=== PATIENT | female | born 1980 | race Caucasian/White ===

== ENCOUNTER 2018-03-02 15:00 | Outpatient (CLI) | END 2018-03-02 21:15 | disposition home or self-care (01) ==

== ENCOUNTER 2018-03-31 14:54 | Inpatient (IN) | payer MEDICAID ==
[~2018-03-31] VITALS: Ht 152.4 cm; Wt 52.1 kg
[~2018-03-31 14:54] MED LIST: PREN1TAB13 PO
[2018-03-31 15:31] VITALS: Ht 152.4 cm; Wt 52.1 kg
[2018-03-31 15:32] VITALS: BP 106/55; PULSE 76; RESP 20
[2018-03-31] MEDS ORDERED: MAGNESIUM SULFATE 4 GM/100 ML 100 ML IV ONE (16:30)
[2018-03-31] MEDS ORDERED: AMPICILLIN 2 GM/NS (PMX) 100 ML IV ONE (16:30)
--- NOTE | 2018-03-31 16:38 | PREOPHP ---
DATE OF ADMISSION: 03/31/2018 HISTORY OF PRESENT ILLNESS: Ms. Santana Conteh is a 38-year-old 1, para 0, EDC of 05/11/2018 intrauterine at 34 weeks and 1 day gestational age, was sent from [facility] for regular contractions. The patient denies any vaginal bleeding or discharge. Her biophysical profile at the [facility] was 8/8. The reason for her biophysical profile at [facility] for elevated liver enzymes. Her care took place at [facility]. PAST MEDICAL HISTORY: None. MEDICATIONS: 1. vitamins. 2. Iron. PAST SURGICAL HISTORY: None. OBSTETRIC HISTORY: Primigravida. GYNECOLOGIC HISTORY: 12, regular 3 to 4 days. Denies any sexually transmitted disease. Sexually active with 1 partner. SOCIAL HISTORY: Denies any smoking, drugs or alcohol. FAMILY HISTORY: None. REVIEW OF SYSTEMS: All within normal except history of present illness. PHYSICAL EXAMINATION: HEENT: Within normal. LUNGS: CTA bilateral. CARDIOVASCULAR: S1, S2. Regular rate, rhythm. ABDOMEN: Gravid, nontender. Negative CVA bilateral. EXTREMITIES: Negative edema. No calf tenderness. PELVIC: Vaginal exam is 1 cm, 50%, -2. heart tracing category 1. Tocometer: Regular contractions. ASSESSMENT: 1. Intrauterine at 34 weeks and 1 day gestational age. 2. labor. 3. Advanced maternal age. PLAN: Admit the patient for IV hydration, steroid treatment for lung maturity, magnesium sulfate, for tocolysis, estimated weight with cervical length, culture, GBS prophylaxis with ampicillin. NICU consult. Perinatology consult. Dictated By: JEFFERSON JENKINS/CHAPIS Conf#: [id number] DID#: [id number] TENZIN
[2018-03-31] MEDS: LACTATED RINGER'S 1,000 ML IV SCH (16:52)
[2018-03-31] MEDS: MAGNESIUM SULFATE 20 GM/500 ML 500 ML IV SCH (17:21)
--- NOTE | 2018-03-31 17:46 | TRIAGE ---
OB Triage Datetime Report Generated by CPN: 03/31/2018 17:45 Datetime: 03/31/2018 16:13 Stage of : Antepartum Vaginal Exam Dilatation (cms): 1.0 Effacement (%): 50 Station: -2 Exam By: MAY Datetime: 03/31/2018 15:15 Stage of : OB Triage Labor Evaluation Monitor Mode: External Heart Rate Monitor Mode: External US Datetime: 03/31/2018 15:12 Assessment Type: Triage Maternal Assessment Level of Consciousness: Fully Conscious DTR's/Clonus: DTRs 2+; No Clonus Headache: Denies Blurred Vision: No Respiratory Effort: Unlabored; Regular Rhythm; Equal Expansion Breath Sounds, Left: Clear and Equal Breath Sounds, Right: Clear and Equal Nausea/Vomiting: Denies RUQ Epigastric Pain: Denies Lower Extremities Edema: None Degree: None Upper Extremities Edema: None Degree: None Facial Edema: None Fall Risk Assessment History of Falling: (0) No Secondary Diagnosis: (0) No Ambulatory Aid: (0) Bedrest/Nurse Assist IV Therapy: (0) No Gait: (0) Normal/Bedrest/Immobile Mental Status: (0) Oriented to Own Ability Fall Score: 0 Fall Risk Score Definition: No Risk: No action required Datetime: 03/31/2018 13:17 Time of Arrival: 03/31/2018 14:52 EGA: 34.1 Arrived By: Ambulatory Arrived From: Dr. Bocanegra Movement: Present Contractions: Occasional Rupture of Membranes: Denies Vaginal Bleeding: None Vaginal Discharge: Denies Recent Sexual Intercouse: Denies Abdominal Trauma: Not Applicable Patient Complaints: Other Time Provider Notified: 03/31/2018 16:13 Provider Notified: DR. LOVE Initial Plan: EFM, UA Datetime: 03/02/2018 15:25 EGA: 30.0 Datetime: 03/02/2018 15:24 Fall Score: 0 Fall Risk Score Definition: No Risk: No action required
[2018-03-31] MEDS: BETAMET NA PHOS/AC(6 MG/ML) 2 ML INJ SYG IM SCH (17:59)
[2018-03-31] MEDS: URSODIOL 300 MG CAP PO SCH (20:48)
[2018-03-31] MEDS: AMPICILLIN 1 GM/NS (PMX) 50 ML IV SCH (20:48)
[2018-04-01] MEDS: AMPICILLIN 1 GM/NS (PMX) 50 ML IV SCH ×4 (00:57→13:15)
[2018-04-01] MEDS: MAGNESIUM SULFATE 20 GM/500 ML 500 ML IV SCH (03:29)
[2018-04-01] MEDS: LACTATED RINGER'S 1,000 ML IV SCH ×3 (04:58→23:10)
[2018-04-01] MEDS: PRENATAL VITAMIN PO SCH (09:20)
[2018-04-01] MEDS: FERROUS SULFATE (EC) 325 MG TAB PO SCH (09:20)
[2018-04-01] MEDS: DOCUSATE SODIUM 100 MG CAP PO SCH (09:20)
[2018-04-01] MEDS: URSODIOL 300 MG CAP PO SCH ×2 (09:20→13:15)
--- NOTE | 2018-04-01 10:03 | NSTRPT ---
NST Information Datetime Report Generated by CPN: 04/01/2018 10:02 Datetime: 03/31/2018 13:09 NST Information EGA: 34.1 Test Number: 1 Time on Monitor: 03/31/2018 13:35 Time off Monitor: 03/31/2018 14:09 NST Duration (Min): 34 Reason for NST: Other Reason for NST Other: Elevated Liver Enzymes, AMA Test and Monitor Explained: Monitor Explained; Test Explained; Verbalized Understanding Pulse: 71 Resp: 18 SBP: 92 DBP: 48 Test Evaluation NST Interventions: None Patient States Movement: Present Contraction Frequency: 4-9/30-90/mild FHR Baseline : 135 Variability: Moderate 6-25bpm Accelerations: 15X15 Decelerations: None FHR Category: Category I NST Results: Reactive Provider Notified: Dr Rivero reviewed strip _ uc pattern-recommends going to triage Comments: To u/s JOSHUA 14.4 CM CEPHALIC UCs present, pt describes pain level of 1=Dr Rivero recommends pt go to triage for evaluation to ro labor Dr Eshaghian informed of reactive nst, joshua _ ucs-plan to triage. Explanation id [place] islander given to p t by BOAZ Gaytan. Pt verbalizes understanding Prenatals _ preliminary us report faxed to triage _ report to Gracy Rhoades RN Electronically Signed By E-Signature: with User ID: [id number], Addendum/Amendment: Elli signing for Mat
--- NOTE | 2018-04-01 16:33 | PERINOTE ---
Date/Time of Note Date/Time of Note DATE: 04/01/18 TIME: 16:17 Assessment/Recommendations Other Assessments IUP 34W2D Uterine contractions, now resolved Status post first dose of betamethasone Intermittent mildly elevated AST/ALT without elevated bile acids One significant variable deceleration seen. JOSHUA on 03/31 was 14 cm Recommendations: Would complete the betamethasone course and observe the patient overnight for additional heart rate decelerations. In the AM would repeat BPP. If normal BPP with normal JOSHUA, would consider D/C home In terms of the LFTs could consider RUQ US for gallstones and possible liver steatosis. Would also consider evaluation for chronic hepatitis B or C. Would not continue ursodiol as the patient does not meet criteria for a diagnosis of cholestasis Would not continue ampicillin as delivery is not anticipated. OB Subjective Free Text/Dictaton Patient admitted from [facility] for uterine contractions. Has a history of mildly elevated LFTs occasional Bile acid determinations have been in the normal range (<10umol/L), not consistent with a diagnosis of cholestasis. Patient reports that she has not taken ursodiol prior to this admission. HD# 2 IUP @ 34W2D Current Medications Current Medications Lactated Ringer's 1,000 ml @ 125 mls/hr Q8H IV Last administered on 04/01/18at 15:41; Admin Dose 125 MLS/HR; Start 03/31/18 at 16:19 Betamethasone Acet/Betameth SodPhos (Celestone Soluspan) 12 mg Q24H IM Last administered on 03/31/18at 17:59; Admin Dose 12 MG; Start 03/31/18 at 16:30; Stop 04/01/18 at 16:31 Prenat Multivit/ [place]/Iron/Folic Ac () 1 tab DAILY PO Last administered on 04/01/18at 09:20; Admin Dose 1 TAB; Start 04/01/18 at 09:00 Ferrous Sulfate (Ferrous Sulfate (Ec)) 325 mg DAILY PO Last administered on 04/01/18at 09:20; Admin Dose 325 MG; Start 04/01/18 at 09:00 Docusate Sodium (Colace) 100 mg DAILY PO Last administered on 04/01/18at 09:20; Admin Dose 100 MG; Start 04/01/18 at 09:00 Ursodiol (Actigall) 300 mg TID PO Last administered on 04/01/18at 13:15; Admin Dose 300 MG; Start 03/31/18 at 21:00 Past Medical History Medical History: no pertinent history [employer] History: no pertinent [employer] history Para: 0 : 1 LMP (Females 10-50): Social History Smoker: non-smoker Alcohol: none Drugs: none OB Admission Exam Physical Exam Vitals: Vital Signs Date Temp Pulse Resp B/P (MAP) Pulse Ox O2 O2 Flow FiO2 Time Delivery Rate 03/31/18 98.1 76 20 106/55 Room Air 15:32 (72) Heart: Rhythm Normal Lungs: Clear, Equal Abdomen: WNL Heart Rate: 120's Accelerations: Accelerations Present Decelerations: Variable Decelerations (Significant variable deceleration at about 2PM, after this consultation) Varibility: Moderate Last 72 hours Lab Results CBC & BMP 03/31/18 16:40 Liver Function Test 03/31/18 16:40 Alanine Aminotransferase (ALT/SGPT) 41 Albumin 3.6 Alkaline Phosphatase 234 H Aspartate Amino Transf (AST/SGOT) 37 Direct Bilirubin 0.00 Total Protein 7.1 Magnesium Level Test 04/01/18 00:42 04/01/18 06:07 Magnesium Level 6.4 *H 7.2 *H Copies To: CC: JEFFERSON LOVE MD ; OCTAVIO CARLSON MD Apr 01, 2018 16:28
--- NOTE | 2018-04-01 17:09 | CONS ---
Date/Time of Note Date/Time of Note DATE: 04/01/18 TIME: 16:36 Assessment/Plan Assessment/Plan Result Diagram: 03/31/18 1640 03/31/18 1640 Results 24hrs Laboratory Tests Test 03/31/18 16:40 04/01/18 00:42 04/01/18 06:07 04/01/18 07:21 White Blood Count 7.6 Red Blood Count 3.65 L Hemoglobin 10.9 L Hematocrit 32.6 L Mean Corpuscular 89.3 Volume Mean Corpuscular 29.9 Hemoglobin Mean Corpuscular 33.4 Hemoglobin Concent Red Cell 13.8 Distribution Width Platelet Count 249 Mean Platelet 10.6 H Volume Immature 0.400 Granulocytes % Neutrophils % 74.0 Lymphocytes % 18.8 Monocytes % 5.4 Eosinophils % 1.1 Basophils % 0.3 Nucleated Red 0.0 Blood Cells % Immature 0.030 Granulocytes # Neutrophils # 5.6 Lymphocytes # 1.4 Monocytes # 0.4 Eosinophils # 0.1 Basophils # 0.0 Nucleated Red 0.0 Blood Cells # Prothrombin Time 11.1 L Prothrombin Time 0.9 Ratio INR International 0.79 Normalized Ratio Activated 27.[address] Time Sodium Level 136 Potassium Level 3.8 Chloride Level 106 Carbon Dioxide 22 Level Anion Gap 8 Blood Urea 6 L Nitrogen Creatinine 0.47 Est Glomerular > 60 Filtrat Rate mL/min Glucose Level 78 Calcium Level 9.4 Total Bilirubin 0.2 Direct Bilirubin 0.00 Indirect Bilirubin 0.2 Aspartate Amino 37 Transf (AST/SGOT) Alanine 41 Aminotransferase ( ALT/SGPT) Alkaline 234 H Phosphatase Total Protein 7.1 Albumin 3.6 Globulin 3.50 H Albumin/Globulin 1.02 Ratio Rapid Plasma NONREACTIVE Reagin Magnesium Level 6.4 *H 7.2 *H Lab Scanned Report REFERENCE LAB Consultation Date/Type/Reason Admit Date/Time Mar 31, 2018 at 16:20 Date of Consultation: Apr 01, 2018 Type of Consult Medicine Reason for Consultation Requested by Dr. Love to discuss with parents anticipated course and complications associated with at 34 2/7 wks gestation Requesting Provider: JEFFERSON LOVE MD Hx of Present Illness Met with parents at bedside and spoke through logistic specialist. Mother is a 36 yo [id number] with EDC 05/11/2018 (EGA 34 2/7 wks). labs: HBsAg-, Rubella equivocal, RPR NR, HIV -. Uncomplicated except for pruritus. Mother noted at Clinic visit 03/31 to exhibit uterine contractions and referred to L&D for evaluation/management. Initially treated with MgSO4, Ampicillin, and Betamethasone. Magnesium and Ampicillin stopped today. Betamethasone # 2 to be given this PM. Mother continues to describe mild contractions. Advised parents that infants born at 34 weeks gestation following completed steroids generally do very well. Respiratory complications are often ameliorated by steroids. Possibility of Apnea of prematurity exists and primary problems associated with temperature maintenance and oral feedings requi re automatic admission to NICU for monitoring and management. Other problems associated with maternal presentation at time of delivery may complicate course depending on timing of ROM, complications of labor and delivery. In uncomplicated deliveries, duration of hospitalization approaches 2-3 weeks but this may vary significantly depending on the individual . Parents appeared to understand and acknowledged the value of maintaining the as long as the fetus appeared to be doing well in utero. Assured parents of availability to answer any questions which may occur. Total time spent reviewing maternal records and counseling parents: 40 minutes Past Medical History Medical History: no pertinent history Medications Current Medications Lactated Ringer's 1,000 ml @ 125 mls/hr Q8H IV Last administered on 04/01/18at 15:41; Admin Dose 125 MLS/HR; Start 03/31/18 at 16:19 Betamethasone Acet/Betameth SodPhos (Celestone Soluspan) 12 mg Q24H IM Last administered on 03/31/18at 17:59; Admin Dose 12 MG; Start 03/31/18 at 16:30; Stop 04/01/18 at 16:31 Prenat Multivit/ [place]/Iron/Folic Ac () 1 tab DAILY PO Last administered on 04/01/18at 09:20; Admin Dose 1 TAB; Start 04/01/18 at 09:00 Ferrous Sulfate (Ferrous Sulfate (Ec)) 325 mg DAILY PO Last administered on 04/01/18at 09:20; Admin Dose 325 MG; Start 04/01/18 at 09:00 Docusate Sodium (Colace) 100 mg DAILY PO Last administered on 04/01/18at 09:20; Admin Dose 100 MG; Start 04/01/18 at 09:00 Ursodiol (Actigall) 300 mg TID PO Last administered on 04/01/18at 13:15; Admin Dose 300 MG; Start 03/31/18 at 21:00 Allergies: Coded Allergies: No Known Allergy (Unverified , 03/02/18) Social History Alcohol Use: none Smoking Status: Never smoker Drug Use: none Exam/Review of Systems Vital Signs Vitals Vital Signs Date Temp Pulse Resp B/P (MAP) Pulse Ox O2 O2 Flow FiO2 Time Delivery Rate 03/31/18 98.1 76 20 106/55 Room Air 15:32 (72) Intake and Output 03/31/18 03/31/18 04/01/18 1515:00 23:00 07:00 IntakeIntake Total 975 ml 1100 ml OutputOutput Total 200 ml 1275 ml BalanceBalance 775 ml -175 ml Medications Medications Current Medications Lactated Ringer's 1,000 ml @ 125 mls/hr Q8H IV Last administered on 04/01/18at 15:41; Admin Dose 125 MLS/HR; Start 03/31/18 at 16:19 Betamethasone Acet/Betameth SodPhos ([place]elestone Soluspan) 12 mg Q24H IM Last administered on 03/31/18at 17:59; Admin Dose 12 MG; Start 03/31/18 at 16:30; Stop 04/01/18 at 16:31 Prenat Multivit/ [place]/Iron/Folic Ac () 1 tab DAILY PO Last administered on 04/01/18at 09:20; Admin Dose 1 TAB; Start 04/01/18 at 09:00 Ferrous Sulfate (Ferrous Sulfate (Ec)) 325 mg DAILY PO Last administered on 04/01/18at 09:20; Admin Dose 325 MG; Start 04/01/18 at 09:00 Docusate Sodium (Colace) 100 mg DAILY PO Last administered on 04/01/18at 09:20; Admin Dose 100 MG; Start 04/01/18 at 09:00 Ursodiol (Actigall) 300 mg TID PO Last administered on 04/01/18at 13:15; Admin Dose 300 MG; Start 03/31/18 at 21:00 SHYAM SULLIVAN MD Apr 01, 2018 17:08
[2018-04-01] MEDS: BETAMET NA PHOS/AC(6 MG/ML) 2 ML INJ SYG IM SCH (17:46)
--- NOTE | 2018-04-01 20:00 | QN ---
Documentation Comment patient seen and evaluated no complaints no ctx, vaginal bleeding/discharge vs stable afebrile ab gravid nt extremity no edema no calf tenderness a/1. Intrauterine at 34 weeks and 2 day gestational age. 2. labor/ ctx resolved, already received 2 doses of sterids 3. Advanced maternal age. p/ consider discharge home tomorrow if stable JEFFERSON LOVE MD Apr 01, 2018 20:00
[2018-04-02] MEDS: LACTATED RINGER'S 1,000 ML IV SCH ×3 (08:29→22:35)
[2018-04-02] MEDS: DOCUSATE SODIUM 100 MG CAP PO SCH (09:00)
[2018-04-02] MEDS: PRENATAL VITAMIN PO SCH (09:00)
[2018-04-02] MEDS: FERROUS SULFATE (EC) 325 MG TAB PO SCH (09:00)
[2018-04-03] MEDS: LACTATED RINGER'S 1,000 ML IV SCH ×3 (06:37→19:00)
[2018-04-03] MEDS: DOCUSATE SODIUM 100 MG CAP PO SCH (09:20)
[2018-04-03] MEDS: PRENATAL VITAMIN PO SCH (09:20)
[2018-04-03] MEDS: FERROUS SULFATE (EC) 325 MG TAB PO SCH (09:20)
--- NOTE | 2018-04-03 17:11 | QN ---
Documentation Comment patient seen and evaluated no complaints no ctx, vaginal bleeding/discharge vs stable afebrile ab gravid nt extremity no edema no calf tenderness fhr cat 1 toco irregular a/1. Intrauterine at 34 weeks and 4 day gestational age. 2. ctx resolved, already received 2 doses of sterids 3. Advanced maternal age. p/ f/u with perinatology JEFFERSON LOVE MD Apr 03, 2018 17:11
[2018-04-04] MEDS: LACTATED RINGER'S 1,000 ML IV SCH (01:44)
--- NOTE | 2018-04-04 07:34 | PD.PPDC ---
CLINICAL UNIT EDUCATOR Discharge Instruction Condition [id number] Patient Condition: Jwcna1s Fair Diet [id number] Diet: Nymck2k Resume Regular Diet Activity/Restrictions [id number] Activity: Camrr4w Bedrest (modified) May be up to bathroom May be up for meals May Shower Netnn1Wa Restrictions: Dzrow6k No Exercising No Lifting No Driving No Sexual Activity Nothing in the Vagina No [place] No Tampons, douche Return to clinic for [id number] TICKET MANAGER Instructions: Aijub0o Fever greater than 101 Chills Worsening abdominal pain Excessive Vaginal Bleeding More than 2 pads per hour Unable to tolerate diet [id number] OB Instructions: Yhymo7g Breast Tenderness Depression Blurried Vision Headache JEFFERSON LOVE MD Apr 04, 2018 07:34
--- NOTE | 2018-04-04 09:00 | DS ---
DATE OF ADMISSION: 03/31/2018 DATE OF DISCHARGE: 04/04/2018 PRIMARY DIAGNOSES: Intrauterine at 34 weeks and 1 day gestational age, labor/contr actions, advanced maternal age, undelivered. PROCEDURE: None. CONDITION ON DISCHARGE: Stable. ACTIVITY: Modified bed rest. DIET: Regular. MEDICATIONS ON DISCHARGE: Continue vitamins and iron supplements. DISCHARGE SUMMARY: The patient is a 38-year-old 1, para 0, admitted on 03/31/2018 secondary to labor/contractions. She was started on IV hydration and given magnesium sulfate for tocol ysis and also given steroid treatment for lung maturity. The patient had an unremarkable hospi christofer stay. She is currently lying in supine position with no contractions noted. Her heart tra cing is category 1. She will be discharged today and follow up in the office this and also continue her nonstress test twice weekly. Strict labor and kick counts were given to p melitaandria. The patient understands and all questions were answered. Dictated By: JEFFERSON JENKINS/CHAPIS Conf#: [id number] DID#: [id number] CC: JEFFERSON LOVE MD;*EndCC*
[2018-04-14] MEDS ORDERED: FERR256T PO (12:58)
== END 2018-04-04 09:42 | disposition home or self-care (01) | DRG 833 ==
LOC: OBT 14:54 → L-D 14:54 → OBT 16:20 → L-D 19:15
PROVIDERS: ADMIT Obstetrics & Gynecology; ATTEND Obstetrics & Gynecology
DX: O60.03 Preterm labor without delivery, third trimester (principal); O76 Abnormality in fetal heart rate and rhythm complicating labor and delivery; Z3A.34 34 weeks gestation of pregnancy; O09.513 Supervision of elderly primigravida, third trimester
CPT/HCPCS: 76815; 76817; 76818; 80053; 81003; 83735; 85025; 85610; 85730; 86592; 86850; 86900; 86901; 87081; G0463; J0290; J0702; J3475; J7120

== ENCOUNTER 2018-04-28 06:00 | Inpatient (IN) | payer MEDICAID ==
[~2018-04-28] VITALS: Ht 158.8 cm; Wt 55.9 kg
[~2018-04-28 06:00] MED LIST changes: +FERR256T PO
[2018-04-28 06:14] VITALS: Ht 158.8 cm; Wt 55.9 kg
[2018-04-28 06:15] VITALS: BP 117/70; PULSE 71; RESP 17
--- NOTE | 2018-04-28 09:30 | TRIAGE ---
OB Triage Datetime Report Generated by CPN: 04/28/2018 09:30 Datetime: 04/28/2018 09:26 Vaginal Exam Dilatation (cms): 2.5 Effacement (%): 80 Station: -2 Exam By: ESHAGHIAN Vaginal Bleeding: Normal Show Cervix, Consistency: Soft Cervix, Position: Midposition Presentation 'A': Cephalic Datetime: 04/28/2018 09:25 Monitor Mode: External Monitor Mode: External US Datetime: 04/28/2018 08:16 Labor Evaluation Frequency: 1-5 Monitor Mode: External Duration (sec)2399: 50-100 Quality: Moderate Pattern: Normal: <= 5 Contractions in 10 Minutes Resting Tone [place]: Relaxed Heart Rate FHR Baseline Rate: 130 Monitor Mode: External US Variability: Moderate 6-25 bpm Accelerations: 15X15 Decelerations: None Category: Category I Datetime: 04/28/2018 06:40 Stage of : OB Triage Labor Evaluation Frequency: 1.5-6 Monitor Mode: External Duration (sec)2399: 60-100 Quality: Moderate Pattern: Normal: <= 5 Contractions in 10 Minutes Resting Tone [place]: Relaxed Heart Rate FHR Baseline Rate: 130 Monitor Mode: External US Variability: Moderate 6-25 bpm Accelerations: 10X10 Decelerations: None Category: Category I Datetime: 04/28/2018 06:30 Vaginal Exam Dilatation (cms): 1.0 Effacement (%): 50 Station: -1 Exam By: Jose BLOOD Vaginal Bleeding: Scant (Annotations: SMALL DARK BROWN BLOOD NOTED) Datetime: 04/28/2018 06:20 Time of Arrival: 04/28/2018 05:59 EGA: 38.1 Arrived By: Wheelchair Arrived From: Home Chief Complaint: c/o LOWER ABDOMINAL PAIN/CONTRACTIONS STARTED @0530 and SPOTTING Movement: Present Contractions: Denies/Absent Time Contractions Began: 04/28/2018 05:30 Contractions: 2-6 Rupture of Membranes: Denies Vaginal Bleeding: Scant Vaginal Discharge: Denies Recent Sexual Intercouse: Denies Abdominal Trauma: Not Applicable Patient Complaints: Contractions; Other Time Provider Notified: 04/28/2018 06:40 Provider Notified: DR. LOVE Initial Plan: EFM, CALL OB Datetime: 04/28/2018 06:10 Stage of : OB Triage Maternal Assessment Level of Consciousness: Fully Conscious DTR's/Clonus: DTRs 2+; No Clonus Headache: Denies Blurred Vision: No Respiratory Effort: Unlabored; Regular Rhythm; Equal Expansion Breath Sounds, Left: Clear and Equal Breath Sounds, Right: Clear and Equal Nausea/Vomiting: Denies RUQ Epigastric Pain: Denies Lower Extremities Edema: None Degree: None Upper Extremities Edema: None Degree: None Facial Edema: None Temperature Route: Oral Fall Risk Assessment History of Falling: (0) No Secondary Diagnosis: (0) No Ambulatory Aid: (0) Bedrest/Nurse Assist IV Therapy: (0) No Gait: (0) Normal/Bedrest/Immobile Mental Status: (0) Oriented to Own Ability Fall Score: 0 Fall Risk Score Definition: No Risk: No action required Pain Assessment Pain Scale: 4 Pain Presence: Intermittent Pain Type: Contraction Pain Location: Abdomen Pain Relief Measures: Comfort Measures Datetime: 04/28/2018 06:09 Monitor Mode: External Contraction Comments: APPLIED Monitor Mode: External US Comments: APPLIED Datetime: 04/14/2018 15:30 Vaginal Exam Dilatation (cms): 0.0 Effacement (%): 0 Station: -2 Exam By: TM Datetime: 04/14/2018 13:05 Fall Score: 0 Fall Risk Score Definition: No Risk: No action required Datetime: 04/14/2018 10:50 EGA: 36.1 Datetime: 04/04/2018 19:41 Fall Score: 0 Fall Risk Score Definition: No Risk: No action required Datetime: 04/04/2018 08:04 Fall Score: 20 Fall Risk Score Definition: No Risk: No action required Datetime: 04/04/2018 08:00 Fall Score: 20 Fall Risk Score Definition: No Risk: No action required Datetime: 04/02/2018 19:35 Fall Score: 0 Fall Risk Score Definition: No Risk: No action required Datetime: 04/02/2018 08:22 Fall Score: 0 Fall Risk Score Definition: No Risk: No action required Datetime: 04/01/2018 20:10 Fall Score: 20 Fall Risk Score Definition: No Risk: No action required Datetime: 04/01/2018 07:42 Fall Score: 20 Fall Risk Score Definition: No Risk: No action required Datetime: 03/31/2018 19:20 Fall Score: 0 Fall Risk Score Definition: No Risk: No action required Datetime: 03/31/2018 18:15 Fall Score: 0 Fall Risk Score Definition: No Risk: No action required Datetime: 03/31/2018 15:12 Fall Score: 0 Fall Risk Score Definition: No Risk: No action required Datetime: 03/31/2018 13:17 EGA: 34.1 Datetime: 03/02/2018 15:25 EGA: 30.0 Datetime: 03/02/2018 15:24 Fall Score: 0 Fall Risk Score Definition: No Risk: No action required
--- NOTE | 2018-04-28 09:34 | PREOPHP ---
DATE OF ADMISSION: 04/28/2018 HISTORY OF PRESENT ILLNESS: Ms. Fransisca Gong is a 38-year-old 1, para 0, EDC 9 with intrauterine at 38 weeks and 1 day gestational age, presented to triage complaining of regular contractions. She was seen and evaluated to have cervical change. [facility]. She denies any vaginal bleeding or discharge. Her care took place at [facility]. PAST MEDICAL HISTORY: None. MEDICATIONS: vitamins. PAST SURGICAL HISTORY: None. OBSTETRIC HISTORY: Prima . GYNECOLOGIC HISTORY: 14, regular 3 to 4 days. Denies any sexually transmitted disease. Sexually ac tive with 1 partner. SOCIAL HISTORY: Denies any smoking, drugs or alcohol. FAMILY HISTORY: None. REVIEW OF SYSTEMS: All within normal except history of present illness. PHYSICAL EXAMINATION: HEENT: Within normal. LUNGS: CTA bilateral. CARDIOVASCULAR: S1, S2, regular rhythm. ABDOMEN: Gravid, nontender. Negative CVA bilateral. EXTREMITIES: Negative calf tenderness. PELVIC: Vaginal exam 2 to 3 cm, 90% effaced, -2 station. heart tracing category 1. [place]: Re gular contractions. ASSESSMENT: Intrauterine at term in labor. PLAN: Admit patient. Anticipate vaginal delivery. Dictated By: JEFFERSON JENKINS/CHAPIS Conf#: [id number] DID#: [id number]
[2018-04-28] MEDS ORDERED: CARBOPROST 250 MCG INJ IM PRN (10:00)
[2018-04-28] MEDS ORDERED: IBUPROFEN 600 MG TAB PO PRN (10:00)
[2018-04-28] MEDS ORDERED: METHYLERGONOVINE 0.2 MG INJ IM PRN (10:00)
[2018-04-28] MEDS ORDERED: MISOPROSTOL 200 MCG TAB PR PRN (10:00)
[2018-04-28] MEDS ORDERED: OXYTOCIN 30 UNITS/LR 500 ML IV PRN (10:00)
[2018-04-28] MEDS ORDERED: AMPICILLIN 2 GM/NS (PMX) 100 ML IV ONE (10:00)
[2018-04-28] MEDS ORDERED: OXYTOCIN 30 UNITS/LR 500 ML IV SCH ×3 (10:00)
[2018-04-28] MEDS ORDERED: LIDOCAINE 1% (MPF) 30 ML INJ INJ PRN (10:00)
[2018-04-28] MEDS ORDERED: BUTORPHANOL 2 MG INJ IV PRN (10:00)
[2018-04-28] MEDS: LACTATED RINGER'S 1,000 ML IV SCH ×2 (11:16→15:31)
[2018-04-28] MEDS ORDERED: AMPICILLIN 1 GM/NS (PMX) 50 ML IV SCH (14:00)
--- NOTE | 2018-04-28 18:54 | PREAC ---
Date/Time of Note Date/Time of Note DATE: 04/28/18 TIME: 18:54 Anesthesia Eval and Record Evaluation Time Pre-Procedure Interview DATE: 04/28/18 TIME: 18:54 Age 38 Sex female NPO: 8 hrs Preoperative diagnosis labor pain Planned procedure labor epidural Past Medical History Past Medical History: None Surgery & Anesthesia Issues No known issue Meds Anticoagulation: No Beta Natalie within 24 hr: No Reason Beta Natalie not given: Pt. not on B-Natalie Reported Medications Ferrous Gluconate (Iron) 256 Mg Tablet, 256 MG PO, TAB 04/14/18 Pnv95/Ferrous Fumarate/FA ( Vitamins Tablet) 1 Each Tablet, 1 EACH PO, TAB 03/02/18 Current Medications Lactated Ringer's 1,000 ml @ 125 mls/hr Q8H IV Last administered on 04/28/18at 15:31; Admin Dose 125 MLS/HR; Start 04/28/18 at 09:56 Ampicillin 50 ml @ 100 mls/hr Q4H IV ; Start 04/28/18 at 14:00 Butorphanol Tartrate (Stadol) 2 mg Q2H PRN IV .PAIN Last administered on 04/28/18at 17:44; Admin Dose 2 MG; Start 04/28/18 at 10:00 Lidocaine (Xylocaine 1% (Mpf)) 30 ml ONCE PRN INJ .EPISIOTOMY; Start 04/28/18 at 10:00 Oxytocin/Lactated Ringer's 500 ml @ 500 mls/hr ONCE POST IV ; Start 04/28/18 at 10:00 Oxytocin/Lactated Ringer's 500 ml @ 125 mls/hr POST IV ; Start 04/28/18 at 10:00 Ibuprofen (Motrin) 600 mg ONCE PRN PO .PAIN 1-5; Start 04/28/18 at 10:00 Oxytocin/Lactated Ringer's 500 ml @ 0 mls/hr ONCE PRN IV .VAGINAL BLEEDING; Start 04/28/18 at 10:00 Methylergonovine Maleate (Methergine) 0.2 mg ONCE PRN IM .VAGINAL BLEEDING; Start 04/28/18 at 10:00 Carboprost Tromethamine (Hemabate) 250 mcg ONCE PRN IM .VAGINAL BLEEDING; Start 04/28/18 at 10:00 Misoprostol (Cytotec) 1,000 mcg ONCE PRN MO .VAGINAL BLEEDING; Start 04/28/18 at 10:00 Oxytocin/Lactated Ringer's 500 ml @ 0 mls/hr FOR AUGMENTATION IV ; Start 04/28/18 at 10:00 Meds reviewed: Yes Allergies Coded Allergies: No Known Allergy (Unverified , 04/28/18) Allergies Reviewed: Yes Labs/Studies Labs Reviewed: Reviewed by anesthesiologist Result Diagram: 04/28/18 1112 Laboratory Tests 04/28/18 11:12 Blood Bank Test 04/28/18 11:12 Antibody Screen NEGATIVE Blood Type O POSITIVE Rh Immune Globulin Candidate NO test: Positive Pre-procedure Exam Last vitals Vital Signs Date Temp Pulse Resp B/P (MAP) Pulse Ox O2 O2 Flow FiO2 Time Delivery Rate 04/28/18 98.0 71 17 117/70 Room Air 06:15 (86) Airway: Adequate mouth opening, Adequate thyromental dist Mallampati: Mallampati III Teeth: Normal Lung: Normal Heart: Normal ASA Physical Status ASA physical status: 2 Emergency: None Planned Anesthetic Neuraxial: Epidural Planned Pain Management Epidural, Parenteral pain med, Other neuraxial med Pre-operative Attestations Prior to commencing anesthesia and surgery, the patient was re-evaluated, there was verification of: *The patient's identity *The results of appropriate recent lab work and preoperative vital signs *The above evaluation not changing prior to induction *Anesthetic plan, risk benefits, alternative and complications discussed with patient/family; questions answered; patient/family understands, accepts and wishes to proceed. DAVID GROSS MD Apr 28, 2018 18:54
[2018-04-28] MEDS ORDERED: NALOXONE (0.4 MG/ML) INJ IV PRN (19:00)
[2018-04-28] MEDS ORDERED: ONDANSETRON 4 MG INJ IV PRN (19:00)
[2018-04-28] MEDS ORDERED: KETOROLAC 30 MG INJ IV PRN (19:00)
[2018-04-28] MEDS ORDERED: HYDROmorphONE 0.5 MG/0.5 ML SYG IV PRN ×2 (19:00)
[2018-04-28] MEDS ORDERED: ZOLPIDEM 5 MG TAB PO PRN (19:00)
[2018-04-28] MEDS ORDERED: DIPHENHYDRAMINE 50 MG INJ IV PRN (19:00)
[2018-04-28] MEDS ORDERED: FENTAnyl 2MCG/ML-ROPIV 0.2% 100 ML BAG EPI SCH (19:00)
--- NOTE | 2018-04-28 22:30 | PAC ---
Date/Time of Note Date/Time of Note DATE: 04/28/18 TIME: 22:30 Post-Anesthesia Notes Post-Anesthesia Note Last documented vital signs Vital Signs Date Temp Pulse Resp B/P (MAP) Pulse Ox O2 O2 Flow FiO2 Time Delivery Rate 04/28/18 98.0 71 17 117/70 Room Air 06:15 (86) Activity: WNL Respiratory function: WNL Cardiovascular function: WNL Mental status: Baseline Pain reasonably controlled: Yes Hydration appropriate: Yes Nausea/Vomiting absent: Yes DAVID GROSS MD Apr 28, 2018 22:30
[2018-04-29] MEDS: LACTATED RINGER'S 1,000 ML IV SCH (00:54)
[2018-04-29] MEDS ORDERED: DEXTROSE 5%-LR 1,000 ML IV SCH (03:00)
[2018-04-29] MEDS ORDERED: ACETAMINOPHEN 500 MG TAB PO STA (03:43)
[2018-04-29] MEDS ORDERED: OXYTOCIN 30 UNITS/LR 500 ML IV SCH (03:57)
--- NOTE | 2018-04-29 03:57 | LDN ---
Date/Time of Note Date/Time of Note DATE: 04/29/18 TIME: 03:55 Delivery Summary Weeks of Gestation 38 Placenta Delivered: Spontaneously Meconium: Light Episiotomy: Yes Laceration repair: rmle repair with 2-0 and 3-0 chromic Anesthesia type: Epidural Estimated blood loss: 200 Sponge & Needle done & correct: Yes All needle counts correct: Yes Any foreign bodies felt in the: No Infant Delivery Information Sex Sex: female Apgars 1 Minute: 8 5 Minute: 9 Suctioning Nose & mouth suctioned at [place]: No Delee suction performed: No Umbilical Cord Umbilical cord with: 3 Vessels Cord presentations: nuchal cord (reducible) Nuchal cord present X: 1 Cord Blood was obtained: Yes Mother & Baby Disposition Disposition patient started on antibiotic secondary to chorio JEFFERSON LVOE MD Apr 29, 2018 03:57
[2018-04-29] MEDS ORDERED: ONDANSETRON 4 MG INJ IV PRN (04:00)
[2018-04-29] MEDS ORDERED: NACL 0.9% 3 ML SYG IV SCH (04:00)
[2018-04-29] MEDS ORDERED: DIPHENHYDRAMINE 25 MG CAP PO PRN (04:00)
[2018-04-29] MEDS ORDERED: ACETAMINOPHEN 325 MG TAB PO PRN (04:00)
[2018-04-29] MEDS ORDERED: WITCH HAZEL/GLYCERIN PAD PR PRN (04:00)
[2018-04-29] MEDS ORDERED: BENZOCAINE 20% 56 ML SPRAY TOP PRN (04:00)
[2018-04-29] MEDS ORDERED: METHYLERGONOVINE 0.2 MG INJ IM PRN (04:00)
[2018-04-29] MEDS ORDERED: MAGNESIUM HYDROXIDE 30ML CUP PO PRN (04:00)
[2018-04-29] MEDS ORDERED: CARBOPROST 250 MCG INJ IM PRN (04:00)
[2018-04-29] MEDS ORDERED: OXYTOCIN 30 UNITS/LR 500 ML IV PRN (04:00)
[2018-04-29] MEDS ORDERED: MISOPROSTOL 200 MCG TAB PR PRN (04:00)
[2018-04-29] MEDS ORDERED: GENTAMICIN 80 MG in SOD CHLORIDE 0.9% 100 ML IV SCH (04:00)
[2018-04-29] MEDS ORDERED: OXYCODONE/ASPIRIN (4.88/325) TAB PO PRN ×2 (04:00)
[2018-04-29] MEDS ORDERED: AMPICILLIN 2 GM/NS (PMX) 100 ML IVPB ONE (04:00)
[2018-04-29] MEDS ORDERED: LANOLIN HPA 1 PKT TOP PRN (04:00)
[2018-04-29] MEDS ORDERED: DIBUCAINE 1% 30 GM OINT TOP PRN (04:00)
[2018-04-29] MEDS: GENTAMICIN 80 MG/NS (PMX) 50 ML IVPB SCH ×3 (06:13→22:16)
[2018-04-29 06:35] VITALS: BP 120/60; PULSE 59; RESP 18
[2018-04-29 07:40] VITALS: BP 101/67; PULSE 65; RESP 16
[2018-04-29] MEDS: SENNA/DOCUSATE NA (8.6MG/50MG) TAB PO SCH ×2 (08:44→21:34)
[2018-04-29] MEDS: AMPICILLIN 2 GM/NS (PMX) 100 ML IV SCH ×3 (12:00→17:54)
[2018-04-29 12:10] VITALS: BP 102/59; PULSE 63; RESP 16
[2018-04-29] MEDS: IBUPROFEN 600 MG TAB PO SCH ×2 (13:26→18:30)
[2018-04-29 15:57] VITALS: BP 115/61; PULSE 62; RESP 18
[2018-04-29 20:00] VITALS: BP_SYST 96; PULSE 68; RESP 19
[2018-04-30] MEDS: IBUPROFEN 600 MG TAB PO SCH ×5 (00:09→23:43)
[2018-04-30] MEDS: AMPICILLIN 2 GM/NS (PMX) 100 ML IV SCH (00:10)
[2018-04-30 03:45] VITALS: BP 112/52; PULSE 68; RESP 18
--- NOTE | 2018-04-30 04:05 | DS ---
Date/Time of Note Date/Time of Note DATE: 04/30/18 TIME: 04:04 Obstetrical Discharge Record Final Diagnosis Final Diagnosis: Term delivered Vaginal Delivery Obstetrical Delivery: Spontaneous, Episiotomy, Repaired Complications Other (chrorio) Condition on Discharge Physical Assessment Last Vitals: stable afebrile Voiding: Yes Bowel Movement: Yes Breast: Soft, non-tender, Filling Fundus: Firm Abdomen and Incision: soft nt Episiotomy: intact Calf Tenderness: No Patient Condition: JEFFERSON Rodriguez MD Apr 30, 2018 04:05
--- NOTE | 2018-04-30 04:06 | PD.PPDC ---
CERAMIC CHEMIST Discharge Instruction Condition [id number] Patient Condition: [id number] Fair Diet [id number] Diet: Mogws4y Resume Regular Diet Activity/Restrictions [id number] Activity: Iavvq8e Normal Activity May Shower [id number] Restrictions: [id number] No Exercising No Lifting No Driving No Sexual Activity Nothing in the Vagina No [place] No Tampons, douche Follow-up Follow-up with Physician: 3, Week/Weeks Return to clinic for [id number] LPN PER DIEM Instructions: Kauia9g Fever greater than 101 Chills Worsening abdominal pain Excessive Vaginal Bleeding More than 2 pads per hour Unable to tolerate diet [id number] OB Instructions: [id number] Breast Tenderness Depression Blurried Vision Headache [id number] Surgical Instructions: [id number] Incisional Drainage Incisional Redness JEFFERSON LOVE MD Apr 30, 2018 04:06
[2018-04-30 08:00] VITALS: BP 106/58; PULSE 65; RESP 18
[2018-04-30] MEDS: SENNA/DOCUSATE NA (8.6MG/50MG) TAB PO SCH ×2 (09:10→21:24)
[2018-04-30 15:58] VITALS: BP 125/74; PULSE 91; RESP 20
[2018-04-30 20:00] VITALS: BP 120/71; PULSE 69; RESP 18
[2018-05-01 04:00] VITALS: BP 109/74; PULSE 63; RESP 18
[2018-05-01] MEDS: IBUPROFEN 600 MG TAB PO SCH ×3 (05:38→17:54)
[2018-05-01 07:35] VITALS: BP 118/58; PULSE 62; RESP 18
[2018-05-01] MEDS: SENNA/DOCUSATE NA (8.6MG/50MG) TAB PO SCH (08:18)
[2018-05-01 15:35] VITALS: BP 106/61; PULSE 66; RESP 16
== END 2018-05-01 18:37 | disposition home or self-care (01) | DRG 807 ==
LOC: L-D 06:00 → OBT 06:00 → L-D 09:28 → OBT 09:31 → L-D 13:07 → PP1 04-29 06:22
PROVIDERS: ADMIT Obstetrics & Gynecology; ATTEND Obstetrics & Gynecology
PROC: 10E0XZZ Delivery of Products of Conception, External Approach (ICD-10-PCS; principal; 2018-04-29)
PROC: 0HQ9XZZ Repair Perineum Skin, External Approach (ICD-10-PCS; 2018-04-29)
DX: O69.81X0 Labor and delivery complicated by cord around neck, without compression, not applicable or unspecified (principal); Z37.0 Single live birth; O70.0 First degree perineal laceration during delivery; Z3A.38 38 weeks gestation of pregnancy
CPT/HCPCS: 62319; 76815; 76818; 81001; 85025; 85610; 85730; 86592; 86850; 86900; 86901; 87340; 90686; 99464; G0463; J0290; J0595; J1580; J2590; J3010; J7120; J7121